=== PATIENT | female | born 1995 | race African-American/Black ===

== ENCOUNTER 2024-03-13 00:12 | Emergency (ER) | payer MEDICAID ==
[~2024-03-13] VITALS: Ht 162.6 cm; Wt 119.0 kg
[2024-03-13 00:30] VITALS: O2SAT 98
[2024-03-13 03:21] LABS: CHLORIDE 104 mEq/L (98-107); POTASSIUM 4.5 mEq/L (3.5-5.1); SODIUM 138 mEq/L (136-145)
[2024-03-13 03:22] LABS: CALCIUM 9.7 mg/dL (8.7-10.4); CARBON DIOXIDE 31 mEq/L (21-32)
[2024-03-13 03:27] LABS: CREATININE 0.9 mg/dL (0.6-1.0); GLUCOSE 218 mg/dL (70-105); UREA NITROGEN BLOOD 9 mg/dL (9-23)
[2024-03-13 03:31] LABS: BASOPHILS % 0.6 % (0.0-2.0); EOSINOPHILS % 0.8 % (0.0-5.0); HEMATOCRIT. 43.2 % (36.0-48.0); HEMOGLOBIN. 14.3 g/dL (12.0-16.0); LYMPHOCYTES % 30.4 % (20.0-50.0); MEAN CORPUSCULAR HEMOGLOBIN 28.9 pg (28.0-32.0); MEAN CORPUSCULAR HGB CONC 33.2 g/dL (31.0-37.0); MEAN PLATELET VOLUME 8.4 fl (7.4-10.4); MONOCYTES % 8.2 % (2.0-8.0); PLATELET 354 x1000/uL (130-400); RED BLOOD CELL COUNT 4.96 mill/uL (4.2-5.4); RED CELL DISTRIBUTION WIDTH 14.2 % (11.6-14.6)
[2024-03-13 03:56] LABS: CLARITY URINE CLOUDY (CLEAR); COLOR URINE YELLOW (YELLOW); GLUCOSE URINE 3+ (NEGATIVE); KETONES URINE NEGATIVE (NEGATIVE); LEUKOCYTE ESTERASE URINE NEGATIVE (NEGATIVE); NITRITE URINE POSITIVE (NEGATIVE); OCCULT BLOOD URINE TRACE (NEGATIVE); PH URINE 6.5 (4.5-8.0); PROTEIN URINE NEGATIVE (NEGATIVE); UROBILINOGEN URINE 0.2 E.U./dL (0.2-1.0)
[2024-03-13 05:34] VITALS: BP 113/88; PULSE 84; RESP 20; TEMP 98.7
[2024-03-13 05:57] LABS: RBC URINE 0-2 /hpf (0-2); SQUAMOUS EPITHELIAL CELL URINE FEW /lpf (RARE/1+)
[2024-03-13 05:58] LABS: BACTERIA URINE 3+
[2024-03-13 05:59] LABS: YEAST URINE 1+
== END 2024-03-13 05:36 | disposition home or self-care (01) ==
LOC: ER 00:37
DX: E11.65 Type 2 diabetes mellitus with hyperglycemia (principal)
CPT/HCPCS: 36415; 80048; 81003; 81025; 82962; 85025; 99283